=== PATIENT | male | born 1945 | race Caucasian/White ===

== ENCOUNTER 2017-02-19 02:25 | Inpatient (IN) | payer MEDICAID ==
[~2017-02-19] VITALS: Ht 157.5 cm; Wt 68.0 kg
--- NOTE | 2017-02-19 02:45 | NUR ---
Pt biba to room c/o non radiating chest pain for 1 hour prior to arrival. Pt having difficulty describing. Pt placed on monitor and is in NSR. Resp even and unlabored. Denies chest pain currently. Pt resting in position of comfort for self with family at bedside. Awaiting further eval.
[2017-02-19] MEDS ORDERED: ONDANSETRON 4 MG/2 ML VIAL IV ONE (03:00)
[2017-02-19] MEDS ORDERED: ASPIRIN 81 MG TAB.CHEW PO ONE (03:00)
[2017-02-19] MEDS ORDERED: IV NORMAL SALINE 500 ML BAG IV ONE (03:00)
[2017-02-19] MEDS ORDERED: NITROGLYCERIN OINT 1 GM PACKET TP ONE ×2 (03:00→04:25)
[2017-02-19 03:11] LABS: BASOPHILS % (AUTO) 0.1 % (0.0-2.0); EOSINOPHILS # (AUTO) 0.1 K/uL (0.0-0.7); EOSINOPHILS % (AUTO) 0.5 % (0.0-7.0); HEMATOCRIT 30.1 % (40-50); HEMOGLOBIN 9.5 G/DL (14.0-18.0); LYMPHOCYTES # (AUTO) 0.4 K/UL (0.8-4.8); LYMPHOCYTES % (AUTO) 2.6 % (20.5-51.5); MEAN CORPUSCULAR HEMOGLOBIN 25.3 UUG (27.0-31.0); MEAN CORPUSCULAR HGB CONC 32 g/dL (32.0-37.0); MEAN CORPUSCULAR VOLUME 79.8 FL (82.0-92.0); MONOCYTES # (AUTO) 0.7 K/UL (0.1-1.30); MONOCYTES % (AUTO) 4.3 % (0.0-11.0); NEUTROPHILS # (AUTO) 14.5 K/UL (1.8-8.9); NEUTROPHILS % (AUTO) 92.5 % (38.5-71.5); PLATELET COUNT (AUTO) 302 K/UL (150-450); RED BLOOD CELL COUNT(AUTO) 3.77 MIL/UL (4.7-6.1); WHITE BLOOD COUNT (AUTO) 15.7 K/UL (4.0-11.2)
[2017-02-19] MEDS ORDERED: ACET-2154 PO (03:15)
[2017-02-19] MEDS ORDERED: METF500T4 PO (03:15)
[2017-02-19] MEDS ORDERED: AMLO10TA2 PO (03:15)
[2017-02-19] MEDS ORDERED: ASPI81TA31 PO (03:15)
[2017-02-19] MEDS ORDERED: ATEN25TA PO (03:15)
[2017-02-19] MEDS ORDERED: TAMS-3 PO (03:15)
[2017-02-19] MEDS ORDERED: GLIM1TAB3 PO (03:15)
[2017-02-19] MEDS ORDERED: CALC-1029 PO (03:15)
[2017-02-19] MEDS ORDERED: ATOR40TA PO (03:15)
[2017-02-19 03:18] LABS: CARBON DIOXIDE 29 mmol/L (21-32); CHLORIDE 103 mmol/L (98-107); GLUCOSE 255 mg/dL (74-106); POTASSIUM 3.9 mmol/L (3.5-5.1); UREA NITROGEN, BLOOD 23 mg/dL (7-18)
[2017-02-19 03:30] LABS: ALANINE AMINOTRANSFERASE 22 U/L (16-63); ALKALINE PHOSPHATASE 77 U/L (50-136); ASPARTATE AMINOTRANSFERASE 17 U/L (15-37); BILIRUBIN,DIRECT 0.1 mg/dL (0.0-0.2); BILIRUBIN,TOTAL 0.3 mg/dL (0.2-1.0); TOTAL PROTEIN, SERUM 7.3 g/dL (6.4-8.2)
[2017-02-19] MEDS ORDERED: IV NORMAL SALINE 500 ML IV ONE (03:52)
[2017-02-19 04:07] LABS: *BILIRUBIN,URIN NEGATIVE (NEGATIVE); *BLOOD, URINE 2+ (NEGATIVE); *CLARITY,URINE CLOUDY (CLEAR); *COLOR,URINE YELLOW (YELLOW); *KETONES,URINE NEGATIVE (NEGATIVE); *PROTEIN,URINE 3+ (NEGATIVE); *UROBILINOGEN,URINE 0.2 E.U./dl (NORMAL); LEUKOCYTE ESTERASE ,URINE 1+ (NEGATIVE); NITRITE, URINE POSITIVE (NEGATIVE); UGLUCOSE NEGATIVE (NEGATIVE)
[2017-02-19] MEDS ORDERED: IOHEXOL 350 100 ML INFUS..BTL ONE ×2 (04:12→05:16)
[2017-02-19] MEDS ORDERED: NORMAL SALINE FLUSH 10 ML DISP.SYRIN ONE ×2 (04:12→05:16)
[2017-02-19] MEDS ORDERED: IV NORMAL SALINE 250 ML IV ONE ×2 (04:12→05:16)
[2017-02-19 04:16] LABS: BACTERIA,URINE MANY /HPF (NONE SEEN); SQUAMOUS EPITHELIAL CELL,UR MODERATE /HPF (NONE SEEN); WBC,URINE 20-50 /HPF (0-3)
--- NOTE | 2017-02-19 04:18 | NUR ---
Pt to CT via [facility]
[2017-02-19] MEDS ORDERED: ONDANSETRON 4 MG/2 ML VIAL ONE (04:25)
[2017-02-19] MEDS ORDERED: CEFTRIAXONE 1 G in IV DEXTROSE 5% 50 ML IV ONE (04:45)
--- NOTE | 2017-02-19 04:59 | NUR ---
Pt returned from CT. New IV needed.
--- NOTE | 2017-02-19 05:17 | NUR ---
IV secured and drsg changed. IV easy to flush and has blood return. CT called for pt to return to finish studies.
--- NOTE | 2017-02-19 05:24 | NUR ---
[facility]
[2017-02-19] MEDS ORDERED: CEFTRIAXONE 1 G VIAL ONE (06:26)
--- NOTE | 2017-02-19 07:15 | NUR ---
ABT infusion completed, no adverse reactions noted. Report given to FAVIOLA Davis. I relinquish care of pt at this time.
--- NOTE | 2017-02-19 09:03 | NUR ---
report was given to architect internship. pt was transfered to room #205.
[2017-02-19 09:40] VITALS: BP 130/60
--- NOTE | 2017-02-19 10:00 | NUR ---
Pt awake alert with son at bedside. Pt drowsy and has left eye drooping. No drift noted. Pt has had hx/o cva without any weakness and residual. TELE SNR. Skin dry and intact. F/C draining cloudy dark urine. F/c was inserted 3 weeks ago from left knee surgery. Left knee with incision without any staple no steri strip no redness. Call light is within reach. Pt is in no acute distress.
[2017-02-19 13:51] VITALS: BP 100/48
[2017-02-19 16:00] VITALS: BP 106/51
--- NOTE | 2017-02-19 16:00 | NUR ---
Medication reconciled put new med list on reconcile.
[2017-02-19] MEDS ORDERED: ONDANSETRON 4 MG/2 ML VIAL IV PRN (17:00)
[2017-02-19] MEDS ORDERED: HYDROCODONE/APAP 10-325 MG TABLET PO PRN (17:00)
[2017-02-19] MEDS ORDERED: Z GUARD REMEDY PASTE 57 GM TUBE TOP PRN (17:00)
[2017-02-19] MEDS: ASPIRIN EC 81 MG TABLET.DR PO SCH (17:00)
[2017-02-19] MEDS ORDERED: LIDOCAINE 2% (UROJET) 10 ML JELLY MM ONE (17:45)
[2017-02-19] MEDS ORDERED: FERR325T28 PO (18:04)
[2017-02-19] MEDS ORDERED: ALEN70TA3 PO (18:04)
[2017-02-19] MEDS ORDERED: FURO-152 PO (18:04)
[2017-02-19] MEDS ORDERED: TRAM50TA2 PO (18:04)
[2017-02-19] MEDS ORDERED: DOCU-141 PO (18:04)
[2017-02-19] MEDS ORDERED: HYDR-3326 PO (18:04)
--- NOTE | 2017-02-19 18:30 | NUR ---
Pt is in no acute distress. Call light is within reach. Awaiting med recon to stil be done.
--- NOTE | 2017-02-19 19:10 | NUR ---
Bedside reporting with [place], RN. Received patient appears sleeping during initial rounds. Son at bedside. No s/s of pain/discomforts/respiratory distress. Continue plan of care.
[2017-02-19 20:00] VITALS: BP 133/60
--- NOTE | 2017-02-19 21:45 | NUR ---
Up to the bathroom with assistance with the urge to defecate. Had small hard stool and urinated a little per son. Will continue to monitor. Encouraged Patient/PCG to increase oral fluid intake unless contraindicated both verbalized understanding.
--- NOTE | 2017-02-19 22:15 | NUR ---
Bladder scan performed, 128cc obtained. Patient tolerated procedure well. Son at bedside interpreting.
[2017-02-19] MEDS: ACETAMINOPHEN 325 MG TABLET PO PRN (23:33)
[2017-02-20 00:05] VITALS: BP 131/57
[2017-02-20 04:00] VITALS: BP 124/58
[2017-02-20] MEDS ORDERED: CEFTRIAXONE 1 G in IV DEXTROSE 5% 50 ML IV SCH (05:00)
--- NOTE | 2017-02-20 05:36 | NUR ---
VS stable. Uses bathroom with assist. Son remains at bedside all the time for assistance and as supervisor reclamation. Unable to sleep per son. Medicated once for pain with relief. All needs attended and met. Continue care as planned.
[2017-02-20 06:45] LABS: BASOPHILS % (AUTO) 0.3 % (0.0-2.0); EOSINOPHILS # (AUTO) 0.1 K/uL (0.0-0.7); EOSINOPHILS % (AUTO) 1.1 % (0.0-7.0); HEMOGLOBIN 8.2 G/DL (14.0-18.0); LYMPHOCYTES # (AUTO) 1.2 K/UL (0.8-4.8); LYMPHOCYTES % (AUTO) 8.8 % (20.5-51.5); MEAN CORPUSCULAR HEMOGLOBIN 25.6 UUG (27.0-31.0); MEAN CORPUSCULAR HGB CONC 32 g/dL (32.0-37.0); MEAN CORPUSCULAR VOLUME 80.8 FL (82.0-92.0); MONOCYTES # (AUTO) 0.8 K/UL (0.1-1.30); NEUTROPHILS # (AUTO) 11.3 K/UL (1.8-8.9); NEUTROPHILS % (AUTO) 83.8 % (38.5-71.5); PLATELET COUNT (AUTO) 261 K/UL (150-450); WHITE BLOOD COUNT (AUTO) 13.4 K/UL (4.0-11.2)
[2017-02-20 06:47] LABS: ALANINE AMINOTRANSFERASE 20 U/L (16-63); ALKALINE PHOSPHATASE 74 U/L (50-136); ASPARTATE AMINOTRANSFERASE 18 U/L (15-37); BILIRUBIN,TOTAL 0.4 mg/dL (0.2-1.0); CARBON DIOXIDE 30 mmol/L (21-32); CHLORIDE 109 mmol/L (98-107); CHOLESTEROL 78 mg/dL (<200); GLUCOSE 113 mg/dL (74-106); HDL CHOLESTEROL 26 mg/dL (40-60); HEMATOCRIT 25.9 % (40-50); MAGNESIUM 1.9 mg/dL (1.8-2.4); PHOSPHOROUS 3.5 mg/dL (2.5-4.9); RED BLOOD CELL COUNT(AUTO) 3.21 MIL/UL (4.7-6.1); TOTAL PROTEIN, SERUM 6.5 g/dL (6.4-8.2); TRIGLYCERIDES 60 MG/DL (30-150); UREA NITROGEN, BLOOD 21 mg/dL (7-18)
[2017-02-20] MEDS ORDERED: PANTOPRAZOLE SODIUM 40 MG TABLET.DR PO SCH (07:00)
[2017-02-20 08:38] LABS: THYROID STIMULATING HORMONE 0.365 mIU/mL (0.358-3.740)
[2017-02-20] MEDS: ASPIRIN EC 81 MG TABLET.DR PO SCH (08:49)
--- NOTE | 2017-02-20 08:58 | NUR ---
PT AWAKE IN BED, SON AT BEDSIDE. DENIES CHEST PAIN OR ABDOMINAL PAIN. MORNING MEDICATION GIVEN, IV INTACT AND PATENT, CALL LIGHT IN REACH WILL CONTINUE TO MONITOR
[2017-02-20 09:27] LABS: BAND % (MANUAL) 6 % (0-10); LYMPHOCYTES % (MANUAL) 5 % (20-40); MONOCYTES % (MANUAL) 6 % (2-10); NEUTROPHILS % (MANUAL) 83 % (42-75)
--- NOTE | 2017-02-20 11:37 | NUR ---
PT TEMP 99.9, TYLENOL GIVEN WILL CONTINUE TO MONITOR
[2017-02-20] MEDS: ACETAMINOPHEN 325 MG TABLET PO PRN (11:38)
[2017-02-20] MEDS ORDERED: FUROSEMIDE 20 MG TABLET PO SCH (12:00)
[2017-02-20] MEDS ORDERED: TRAMADOL HCL 50 MG TABLET PO PRN (12:00)
[2017-02-20] MEDS ORDERED: HYDROCODONE/APAP 5-325MG TABLET PO PRN (12:00)
[2017-02-20 12:02] VITALS: BP 123/54
[2017-02-20] MEDS ORDERED: METFORMIN HCL 500 MG TABLET PO SCH (12:15)
[2017-02-20] MEDS ORDERED: TAMSULOSIN HCL 0.4 MG CAP.SR.24H PO SCH (12:17)
[2017-02-20] MEDS ORDERED: AMLODIPINE 10 MG TABLET PO SCH (12:21)
[2017-02-20] MEDS ORDERED: ATENOLOL 25 MG TABLET PO SCH (12:22)
[2017-02-20] MEDS ORDERED: Z GUARD REMEDY PASTE 57 GM TUBE TOP PRN (12:30)
[2017-02-20] MEDS: GLIMEPIRIDE 2 MG TABLET PO SCH ×2 (12:53→16:51)
--- NOTE | 2017-02-20 12:57 | NUR ---
RECHECKED PT TEMP, 98.5
[2017-02-20] MEDS ORDERED: HEPARIN/D5W DRIP 500 ML IV PRN (15:00)
[2017-02-20 15:41] VITALS: BP 113/45
[2017-02-20] MEDS ORDERED: HEPARIN SODIUM,PORCINE 5,000 UNITS/ML VIAL IV ONE (17:15)
[2017-02-20] MEDS ORDERED: HEPARIN SODIUM,PORCINE 5,000 UNITS/ML VIAL IV PRN (17:15)
--- NOTE | 2017-02-20 18:05 | NUR ---
HEPARIN DRIP STARTED PER PROTOCOL, BOLUS OF 4760 UNITS ALSO GIVEN ORDERED. SCANNED WRONG HEPARIN BOLUS, CALLED PHARMACY AND CLARIFIED HOW TO FIX THE ERROR. FIXED IN eMAR. PTT DUE AT 2330. WILL ENDORSE TO PAPER CLEANER. EDUCATED PT AND PT SON ON BLEEDING PRECAUTIONS. CALL LIGHT IN REACH, WILL CONTINUE TO MONITOR
--- NOTE | 2017-02-20 19:10 | NUR ---
Bedside reporting with FAVIOLA Devlin. Patient awake, not in distress. No s/s of pain/discomforts. Son at bedside interpreting. On Heparin drip as ordered. No s/s of active bleeding noted. Continue care as planned.
--- NOTE | 2017-02-20 19:48 | NUR ---
Carlota from [place] called. No transfer to [facility] due to no Asset Card Clerk available. She'll try to call Олег and she'll let me know. Rose, charge nurse aware.
[2017-02-20 20:09] VITALS: BP 128/56
--- NOTE | 2017-02-20 20:20 | NUR ---
Carlota from [facility] called again asking Dr. Gottlieb's phone number and to to tell Dr. Gottlieb that Dr. Castillo from [facility] will call him regarding this patient. Charge Nurse sent text to Dr. Gottlieb.
[2017-02-20] MEDS ORDERED: ATORVASTATIN 40 MG TABLET PO SCH (21:00)
--- NOTE | 2017-02-20 23:25 | NUR ---
Pt very constipated, obtained order of fleet enema stat and colace from Dr. Gottlieb.
[2017-02-20] MEDS ORDERED: FLEET ENEMA 133 ML BOTTLE RC ONE ×2 (23:30→23:46)
--- NOTE | 2017-02-20 23:30 | NUR ---
Had 9 beats of V tach reported. Patient trying to defecate this time. Will monitor. Dr. Gottlieb aware.
[2017-02-20] MEDS ORDERED: DOCUSATE SODIUM 100 MG CAPSULE PO ONE (23:46)
--- NOTE | 2017-02-20 23:50 | NUR ---
Fleet enema nad colace given as ordered and needed. Will monitor effect.
[2017-02-21 00:13] VITALS: BP 125/62
--- NOTE | 2017-02-21 00:55 | NUR ---
Assisted patient to the bathroom with complaint of urgency to defecate.
--- NOTE | 2017-02-21 01:10 | NUR ---
Had a very large hard to soft BM. Sponge bath and good gabriel/skin care rendered. Pt tolerated procedure well. Patient express mild relief from laxative. Instructed patient /son that more BM will come out later.
--- NOTE | 2017-02-21 01:55 | NUR ---
Report given to Noel Gibbs RN from [facility] [phone].
--- NOTE | 2017-02-21 02:07 | NUR ---
VS taken and recorded as follows: 144/63, 98.9, 76, 18, 97% RA.
[2017-02-21] MEDS ORDERED: PANT40TA2 PO (03:44)
[2017-02-21] MEDS ORDERED: FURO20TA4 PO (03:44)
[2017-02-21] MEDS ORDERED: AMLO10TA2 PO (03:44)
[2017-02-21] MEDS ORDERED: FERR325T28 PO (03:44)
[2017-02-21] MEDS ORDERED: HYDR-548 PO (03:44)
[2017-02-21] MEDS ORDERED: ASPI81TA31 PO (03:44)
[2017-02-21] MEDS ORDERED: TRAM50TA2 PO (03:44)
[2017-02-21] MEDS ORDERED: GLIM2TAB PO (03:44)
[2017-02-21] MEDS ORDERED: TAMS-3 PO (03:44)
[2017-02-21] MEDS ORDERED: ATOR40TA PO (03:44)
[2017-02-21] MEDS ORDERED: ENOX40DI SQ (03:44)
[2017-02-21] MEDS ORDERED: ALEN70TA3 PO (03:44)
[2017-02-21] MEDS ORDERED: ACET325T53 PO (03:44)
[2017-02-21] MEDS ORDERED: DOCU100C36 PO (03:44)
[2017-02-21] MEDS ORDERED: CALC500T55 PO (03:44)
[2017-02-21] MEDS ORDERED: ATEN25TA PO (03:44)
--- NOTE | 2017-02-21 04:10 | NUR ---
Heparin stopped per MD order
[2017-02-21] MEDS ORDERED: ENOXAPARIN SODIUM 80 MG/0.8 ML DISP.SYRIN SQ SCH (04:15)
--- NOTE | 2017-02-21 04:20 | NUR ---
Lovenox 70mg given SQ as ordered., tolerated well.
[2017-02-21] MEDS ORDERED: ENOXAPARIN SODIUM 80 MG/0.8 ML DISP.SYRIN SQ ONE (04:23)
--- NOTE | 2017-02-21 04:37 | NUR ---
To [facility] via ambulance. D/c patient with belongings accompanied by son. Denies any pain/discomforts at this time. No active bleeding noted. VS stable
[2017-02-21] MEDS ORDERED: CALCIUM CARBONATE 500 MG TABLET PO SCH (09:00)
[2017-02-21] MEDS ORDERED: ASPIRIN 81 MG TAB.CHEW PO SCH (09:00)
[2017-02-21] MEDS ORDERED: DOCUSATE SODIUM 100 MG CAPSULE PO SCH (09:00)
[2017-02-22] MEDS ORDERED: FERROUS SULFATE 325 MG TABEC PO SCH (09:00)
[2017-02-25] MEDS ORDERED: ALENDRONATE SODIUM 70 MG TABLET PO SCH (07:00)
== END 2017-02-21 04:54 | disposition short-term general hospital (02) | DRG 720 ==
LOC: ER 02:26 → TELE 08:47
PROVIDERS: ADMIT Nurse Practitioner Acute Care; ATTEND Nurse Practitioner Acute Care
DX: A41.9 Sepsis, unspecified organism (principal); I21.4 Non-ST elevation (NSTEMI) myocardial infarction; G93.40 Encephalopathy, unspecified; I50.33 Acute on chronic diastolic (congestive) heart failure; N39.0 Urinary tract infection, site not specified; E11.9 Type 2 diabetes mellitus without complications; D63.8 Anemia in other chronic diseases classified elsewhere; I10 Essential (primary) hypertension; E78.5 Hyperlipidemia, unspecified; Z96.652 Presence of left artificial knee joint; I69.320 Aphasia following cerebral infarction; Z79.899 Other long term (current) drug therapy; Z79.84 Long term (current) use of oral hypoglycemic drugs; I25.2 Old myocardial infarction
CPT/HCPCS: 36415; 70030-TC; 71010; 71275; 83735; 84100; 84443; 85025; 85730; 87077; 87086; 93005; 93307; A4663; J0696; J1644; J1650; J2405; J3490; J7030; J7040; J7050; J7060; Q9967